=== PATIENT | female | born 1960 | race Caucasian/White ===

== ENCOUNTER 2017-04-23 09:21 | Day surgery (SDC) | payer OTHER ==
[2017-04-17 11:05] VITALS: BMI 19.3
[2017-04-23] MEDS ORDERED: PROPOFOL 20 ML ONE ×2 (09:52)
[2017-04-23 12:46] VITALS: BP 115/68; PULSE 79; TEMP 97.1
--- NOTE | 2017-04-24 14:12 | PATH ---
Surgical Pathology Report Patient Name: AMINTA OHARA [facility]. Rec. #: [id number] /Age/Gender: 1960 (Age: 56) / F Account: [id number] Location: [facility]-ENDOSCOPY Taken: 04/23/2017 Received: 04/23/2017 Reported: 04/24/2017 Physicians: Jacqui Hill M.D. Specimen(s) Received A: BX DESCENDING / 30CM COLON B: BX 15CM COLON Clinical History Rule out colon cancer Polyps Final Diagnosis A. DESCENDING/30 CM, BIOPSY: HYPERPLASTIC POLYP. B. 15 CM, BIOPSY: HYPERPLASTIC POLYP. Electronically Signed Paz Goode M.D. Gross Description A. Received in formalin, labeled "descending 30 cm" is a art, irregular portion of soft tissue measuring 0.1 cm. in greatest dimension. The specimen is submitted in toto in one cassette. B. Received in formalin, labeled "15 cm" is a art, irregular portion of soft tissue measuring 0.2 cm. in greatest dimension. The specimen is submitted in toto in one cassette. 04/23/2017 saudi04/23/2017
== END 2017-04-23 12:30 | disposition home or self-care (01) ==
LOC: FASU-ENDO 09:21
PROVIDERS: ATTEND Internal Medicine Gastroenterology
PROC: 0DBM8ZX Excision of Descending Colon, Via Natural or Artificial Opening Endoscopic, Diagnostic (ICD-10-PCS; principal; 2017-04-23 11:02)
PROC: 0DBN8ZX Excision of Sigmoid Colon, Via Natural or Artificial Opening Endoscopic, Diagnostic (ICD-10-PCS; 2017-04-23 11:02)
DX: Z12.11 Encounter for screening for malignant neoplasm of colon (principal); K64.8 Other hemorrhoids; K63.5 Polyp of colon
CPT/HCPCS: 88305-TC